=== PATIENT | female | born 1990 | race African-American/Black ===

== ENCOUNTER 2017-02-25 18:37 | Emergency (ER) | payer OTHER ==
[2017-02-25 16:42] LABS: INFLUENZA A NEG (NEG); INFLUENZA B POS (NEG)
[~2017-02-25 18:37] MED LIST: BACTRIM DS TABL1 TAB PO; CIPRO PO; DOXYCYCLINE PO; FLAGYL PO; FLEXERIL10 MG PO; IBUPROFEN800 MG PO; KETOPROFEN PO; MEDROL DOSEPAK4 MG DOB; NAPROSYN500 MG PO; NO MEDICATIONS; ORTHO-NOVUM1 TAB; ORUDIS75 M1 DOB; PYRIDIUM100 MG PO; REGLAN PO
== END 2017-02-25 19:34 | disposition home or self-care (01) ==
LOC: CFTX 18:37
PROVIDERS: Emergency Medicine
DX: J10.1 Influenza due to other identified influenza virus with other respiratory manifestations (principal); E11.9 Type 2 diabetes mellitus without complications; J45.909 Unspecified asthma, uncomplicated; E03.9 Hypothyroidism, unspecified; Z88.0 Allergy status to penicillin
CPT/HCPCS: 87651; 87804; 94640; 99283